=== PATIENT | male | born 1990 | race Caucasian/White ===

== ENCOUNTER 2019-11-25 11:07 | Emergency (ER) | payer BC, MEDICAID ==
[2019-11-25] MEDS ORDERED: Ondansetron 4 MG/2 ML SDV IVPUSH ONE (11:37)
[2019-11-25] MEDS ORDERED: Sodium Chloride 0.9% 10 ML Syringe FLUSH PRN (11:37)
[2019-11-25] MEDS ORDERED: Sodium Chloride 0.9% 1,000 ML IV ONE (11:37)
--- NOTE | 2019-11-25 11:37 | EDM.PDOC ---
ED HPI GENERAL MEDICAL PROBLEM - General Chief Complaint: Gastrointestinal Problem Stated Complaint: PASSED OUT AT WORK SICK X5 DAYS Time Seen by Provider: 11/25/19 11:22 Source of Information: Reports: Patient, RN Notes Reviewed, Significant Other History Limitations: Reports: No Limitations - History of Present Illness INITIAL COMMENTS - FREE TEXT/NARRATIVE: Patient is a 28-year-old male who presents to the ED for the evaluation of a few different complaints. Patient notes he has been ill for the past 5 days with vomiting and diarrhea, he states he is not able to keep much for food or fluids down at all. He states that he was able to eat some breakfast this morning, which consisted of eggs and some deer sausage. Patient notes that yesterday he felt a little bit better, so he went to work today and started exerting himself, loading and moving cases of pop, when he became lightheaded and felt sweaty, so he sat down. It was at this time he states he saw some flashing lights in his vision, and felt lightheaded/faint. He notes he did not have any sort of loss of consciousness nor did he blackout. Patient states that he has been having roughly 4-5 episodes of vomiting and diarrhea per day for the last few days. He has not noted any fever however he does not have a thermometer at home, he is afebrile at time of triage. He did notice some mild shortness of breath as well when he felt faint and lightheaded today. He does note his urine is darker in color, and seems to be more concentrated. He has not had any like sick contacts. He has not been taking any sort of over-the- counter medications for the vomiting or diarrhea, the significant other in the room states that he was taking sent tumeric and garlic at home. He denies any cough or chest pain, he does note some mild generalized abdominal tenderness. He has not had any abdominal surgeries, so he still retains his appendix and gallbladder. Patient notes he has not got a flu shot this year. He also denies any sort of questionable food he could have ingested. Patient does smoke cigarettes, 1 pack/day for 20 years, does not use alcohol, and states that he recently quit using methamphetamines 1 week ago. He states that he had been a user for around 10 years. He states that he injected meth when he used it. He does not have a primary care provider. Other Treatments [employer]: 7 up - Related Data Allergies Allergy/AdvReac Type Severity Reaction Status Date / Time No Known Allergies Allergy Verified 11/25/19 11:24 Home Meds: Home Meds Ondansetron [Zofran ODT] 4 mg PO Q8H PRN #12 tab.dis 11/25/19 [Rx] Past Medical History - Past Health History Medical/Surgical History: Denies Medical/Surgical History Social & Family History - Tobacco Use Smoking Status *Q: Current Every Day Smoker Years of Tobacco use: 20 Packs/Tins Daily: 1 - Caffeine Use Caffeine Use: Reports: Coffee, Soda, Tea - Recreational Drug Use Recreational Drug Use: Yes 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 Denies: Fever, Chills Respiratory: Reports: Shortness of Breath (when he felt faint this AM). Denies : Cough Cardiovascular: Reports: Lightheadedness, Palpitations (states he felt his heart racing when he felt faint this AM). Denies: Chest Pain, Edema GI/Abdominal: Reports: Abdominal Pain (generalized abd tenderness), Diarrhea, Decreased Appetite, Nausea, Vomiting. Denies: Black Stool, Bloody Stool, Hematemesis : Reports: Other (stronger smelling, darker colored urine). Denies: Dysuria, Frequency, Urgency Neurological: Reports: Syncope (near-syncope). Denies: Headache ED EXAM, GI/ABD - Physical Exam Exam: See Below Exam Limited By: No Limitations General Appearance: Alert, WD/WN, No Apparent Distress Eyes: Bilateral: Normal Appearance, EOMI Ears: Normal External Exam Nose: Normal Inspection Throat/Mouth: Normal Inspection, Normal Lips, Normal Teeth, Normal Gums, Normal Oropharynx, Normal Voice, No Airway Compromise Head: Atraumatic, Normocephalic Neck: Normal Inspection Respiratory/Chest: No Respiratory Distress, Lungs Clear, Normal Breath Sounds, No Accessory Muscle Use, Chest Non-Tender Cardiovascular: Normal Peripheral Pulses, Regular Rate, Rhythm, No Murmur GI/Abdominal Exam: Normal Bowel Sounds, Soft, No Distention, No Mass, Tender ( generalized tenderness throughout entire abdomen) Extremities: Normal Inspection, Normal Capillary Refill Neurological: Alert, Oriented, Normal Cognition, No Motor/Sensory Deficits Psychiatric: Normal Affect, Normal Mood Skin Exam: Warm, Dry, Intact, Normal Color, No Rash Course - Vital Signs Last Recorded V/S: Last Vital Signs Temp 96.9 F 11/25/19 11:27 Pulse 84 11/25/19 11:27 Resp 20 11/25/19 11:27 BP 118/90 11/25/19 11:27 Pulse Ox 100 11/25/19 11:27 Orthostatic Blood Pressure [ 115/84 Standing] Orthostatic Blood Pressure [ 114/88 Supine] - Orders/Labs/Meds Orders: Active Orders 24 hr Category Date Time Status Orthostatic Vital Signs [RC] ASDIRECTED Care 11/25/19 11:38 Active Peripheral IV Care [RC] . DIRECTED Care 11/25/19 11:37 Active HEP A AB, IGM [REF] Urgent Lab 11/25/19 14:30 Received HEPATITIS B SURFACE AG [CHEM] Stat Lab 11/25/19 14:30 Received HEPATITIS PANEL (4) [REF] Urgent Lab 11/25/19 14:30 Received Sodium Chloride 0.9% [Saline Flush] Med 11/25/19 11:37 Active 10 ml FLUSH ASDIRECTED PRN Peripheral IV Insertion Adult [OM.PC] Stat Oth 11/25/19 11:37 Ordered Medication Orders Sodium Chloride (Saline Flush) 10 ml FLUSH ASDIRECTED PRN PRN Reason: Keep Vein Open Last Admin: 11/25/19 11:51 Dose: 10 ml Labs: Laboratory Tests 11/25/19 11/25/19 11/25/19 Range/Units 11:52 11:52 11:52 WBC 11.34 H (4.23-9.07) K/mm3 RBC 5.79 (4.63-6.08) M/mm3 Hgb 17.1 (13.7-17.5) gm/dl Hct 50.5 (40.1-51.0) % MCV 87.2 (79.0-92.2) fl MCH 29.5 (25.7-32.2) pg MCHC 33.9 (32.2-35.5) g/dl RDW Std Deviation 53.1 H (35.1-43.9) fL Plt Count 287 (163-337) K/mm3 MPV 10.3 (9.4-12.3) fl Neut % (Auto) 59.7 (34.0-67.9) % Lymph % (Auto) 24.8 (21.8-53.1) % [place] % (Auto) 12.4 H (5.3-12.2) % Eos % (Auto) 2.6 (0.8-7.0) Baso % (Auto) 0.4 (0.1-1.2) % Neut # (Auto) 6.76 H (1.78-5.38) K/mm3 Lymph # (Auto) 2.81 (1.32-3.57) K/mm3 [place] # (Auto) 1.41 H (0.30-0.82) K/mm3 Eos # (Auto) 0.30 (0.04-0.54) K/mm3 Baso # (Auto) 0.05 (0.01-0.08) K/mm3 Manual Slide Review Normal smear Sodium 138 (136-145) mEq/L Potassium 4.2 (3.5-5.1) mEq/L Chloride 100 (98-107) mEq/L Carbon Dioxide 32 (21-32) mEq/L Anion Gap 10.2 (5-15) BUN 13 (7-18) mg/dL Creatinine 0.9 (0.7-1.3) mg/dL Est Cr Clr Drug Dosing 120.02 mL/min Estimated GFR (MDRD) > 60 (>60) mL/min BUN/Creatinine Ratio 14.4 (14-18) Glucose 94 (74-106) mg/dL Calcium 8.7 (8.5-10.1) mg/dL Total Bilirubin 6.2 H (0.2-1.0) mg/dL GGT 237 H (15-85) U/L AST 978 H (15-37) U/L ALT 3073 H (16-63) U/L Alkaline Phosphatase 286 H (46-116) U/L Total Protein 7.0 (6.4-8.2) g/dl Albumin 3.3 L (3.4-5.0) g/dl Globulin 3.7 gm/dL Albumin/Globulin Ratio 0.9 L (1-2) Lipase (73-393) U/L Urine Color (Yellow) Urine Appearance (Clear) Urine pH (5.0-8.0) Ur Specific [place] (1.005-1.030) Urine Protein (Negative) Urine Glucose (UA) (Negative) Urine Ketones (Negative) Urine Occult Blood (Negative) Urine Nitrite (Negative) Urine Bilirubin (Negative) Urine Urobilinogen (0.2-1.0) Ur Leukocyte Esterase (Negative) Urine RBC (0-5) /hpf Urine WBC (0-5) /hpf Ur Squamous Epith Cells (0-5) /hpf Urine Bacteria (FEW) /hpf Urine Mucus (FEW) /hpf Urine Opiates Screen (IVXUSA=619) Ur Buprenorphine Scrn (CUTOFF=10) Ur Oxycodone Screen (VKN4JJ=235) Urine Methadone Screen (BIN5KA=295) Ur Propoxyphene Screen (LQKDTD=608) Acetaminophen (10-30) ug/mL Ur Barbiturates Screen (NEROJX=158) Ur Tricyclics Screen (MLIZVN=429) Ur Phencyclidine Scrn (CUTOFF=25) Ur Amphetamine Screen (WWPIVC=766) U Methamphetamines Scrn (HHBVLG=936) U Benzodiazepines Scrn (ELBDQK=112) U Cocaine Metab Screen (DRVOQE=187) U Marijuana (THC) Screen (CUTOFF=50) Hepatitis C Antibody (NEGATIVE) HIV-1 Ab Rapid Screen (NEGATIVE) 11/25/19 11/25/19 11/25/19 Range/Units 11:52 11:52 11:52 WBC (4.23-9.07) K/mm3 RBC (4.63-6.08) M/mm3 Hgb (13.7-17.5) gm/dl Hct (40.1-51.0) % MCV (79.0-92.2) fl MCH (25.7-32.2) pg MCHC (32.2-35.5) g/dl RDW Std Deviation (35.1-43.9) fL Plt Count (163-337) K/mm3 MPV (9.4-12.3) fl Neut % (Auto) (34.0-67.9) % Lymph % (Auto) (21.8-53.1) % [place] % (Auto) (5.3-12.2) % Eos % (Auto) (0.8-7.0) Baso % (Auto) (0.1-1.2) % Neut # (Auto) (1.78-5.38) K/mm3 Lymph # (Auto) (1.32-3.57) K/mm3 [place] # (Auto) (0.30-0.82) K/mm3 Eos # (Auto) (0.04-0.54) K/mm3 Baso # (Auto) (0.01-0.08) K/mm3 Manual Slide Review Sodium (136-145) mEq/L Potassium (3.5-5.1) mEq/L Chloride (98-107) mEq/L Carbon Dioxide (21-32) mEq/L Anion Gap (5-15) BUN (7-18) mg/dL Creatinine (0.7-1.3) mg/dL Est Cr Clr Drug Dosing mL/min Estimated GFR (MDRD) (>60) mL/min BUN/Creatinine Ratio (14-18) Glucose (74-106) mg/dL Calcium (8.5-10.1) mg/dL Total Bilirubin (0.2-1.0) mg/dL GGT (15-85) U/L AST (15-37) U/L ALT (16-63) U/L Alkaline Phosphatase (46-116) U/L Total Protein (6.4-8.2) g/dl Albumin (3.4-5.0) g/dl Globulin gm/dL Albumin/Globulin Ratio (1-2) Lipase 99 (73-393) U/L Urine Color (Yellow) Urine Appearance (Clear) Urine pH (5.0-8.0) Ur Specific [place] (1.005-1.030) Urine Protein (Negative) Urine Glucose (UA) (Negative) Urine Ketones (Negative) Urine Occult Blood (Negative) Urine Nitrite (Negative) Urine Bilirubin (Negative) Urine Urobilinogen (0.2-1.0) Ur Leukocyte Esterase (Negative) Urine RBC (0-5) /hpf Urine WBC (0-5) /hpf Ur Squamous Epith Cells (0-5) /hpf Urine Bacteria (FEW) /hpf Urine Mucus (FEW) /hpf Urine Opiates Screen (KHHGXD=031) Ur Buprenorphine Scrn (CUTOFF=10) Ur Oxycodone Screen (QXD4CF=639) Urine Methadone Screen (BZN9UD=818) Ur Propoxyphene Screen (QWIXNE=393) Acetaminophen 0 L (10-30) ug/mL Ur Barbiturates Screen (MEIPDJ=173) Ur Tricyclics Screen (IGODSQ=542) Ur Phencyclidine Scrn (CUTOFF=25) Ur Amphetamine Screen (EFFYDB=941) U Methamphetamines Scrn (QWOWNV=002) U Benzodiazepines Scrn (DNIIKC=369) U Cocaine Metab Screen (ZFJJXN=695) U Marijuana (THC) Screen (CUTOFF=50) Hepatitis C Antibody Positive H (NEGATIVE) HIV-1 Ab Rapid Screen (NEGATIVE) 11/25/19 11/25/19 11/25/19 Range/Units 12:43 12:43 14:38 WBC (4.23-9.07) K/mm3 RBC (4.63-6.08) M/mm3 Hgb (13.7-17.5) gm/dl Hct (40.1-51.0) % MCV (79.0-92.2) fl MCH (25.7-32.2) pg MCHC (32.2-35.5) g/dl RDW Std Deviation (35.1-43.9) fL Plt Count (163-337) K/mm3 MPV (9.4-12.3) fl Neut % (Auto) (34.0-67.9) % Lymph % (Auto) (21.8-53.1) % [place] % (Auto) (5.3-12.2) % Eos % (Auto) (0.8-7.0) Baso % (Auto) (0.1-1.2) % Neut # (Auto) (1.78-5.38) K/mm3 Lymph # (Auto) (1.32-3.57) K/mm3 [place] # (Auto) (0.30-0.82) K/mm3 Eos # (Auto) (0.04-0.54) K/mm3 Baso # (Auto) (0.01-0.08) K/mm3 Manual Slide Review Sodium (136-145) mEq/L Potassium (3.5-5.1) mEq/L Chloride (98-107) mEq/L Carbon Dioxide (21-32) mEq/L Anion Gap (5-15) BUN (7-18) mg/dL Creatinine (0.7-1.3) mg/dL Est Cr Clr Drug Dosing mL/min Estimated GFR (MDRD) (>60) mL/min BUN/Creatinine Ratio (14-18) Glucose (74-106) mg/dL Calcium (8.5-10.1) mg/dL Total Bilirubin (0.2-1.0) mg/dL GGT (15-85) U/L AST (15-37) U/L ALT (16-63) U/L Alkaline Phosphatase (46-116) U/L Total Protein (6.4-8.2) g/dl Albumin (3.4-5.0) g/dl Globulin gm/dL Albumin/Globulin Ratio (1-2) Lipase (73-393) U/L Urine Color Cindy H (Yellow) Urine Appearance Clear (Clear) Urine pH 6.0 (5.0-8.0) Ur Specific [place] 1.025 (1.005-1.030) Urine Protein Trace H (Negative) Urine Glucose (UA) Trace H (Negative) Urine Ketones Negative (Negative) Urine Occult Blood Negative (Negative) Urine Nitrite Negative (Negative) Urine Bilirubin 3+ H (Negative) Urine Urobilinogen >=8.0 H (0.2-1.0) Ur Leukocyte Esterase Negative (Negative) Urine RBC 5-10 H (0-5) /hpf Urine WBC 0-5 (0-5) /hpf Ur Squamous Epith Cells 0-5 (0-5) /hpf Urine Bacteria Few (FEW) /hpf Urine Mucus Many H (FEW) /hpf Urine Opiates Screen Negative (XRHJXG=495) Ur Buprenorphine Scrn Negative (CUTOFF=10) Ur Oxycodone Screen Negative (LVY5XT=551) Urine Methadone Screen Negative (ERM8VR=799) Ur Propoxyphene Screen Negative (VGUCCC=457) Acetaminophen (10-30) ug/mL Ur Barbiturates Screen Negative (LYYNHI=117) Ur Tricyclics Screen Negative (PZFGOW=213) Ur Phencyclidine Scrn Negative (CUTOFF=25) Ur Amphetamine Screen Presumptive positive H (LLARLZ=153) U Methamphetamines Scrn Presumptive positive H (EYACUR=137) U Benzodiazepines Scrn Negative (IIQKVO=143) U Cocaine Metab Screen Negative (YUYKBQ=774) U Marijuana (THC) Screen Negative (CUTOFF=50) Hepatitis C Antibody (NEGATIVE) HIV-1 Ab Rapid Screen Negative (NEGATIVE) Meds: Medications Generic Name Dose Route Start Last Admin Trade Name Irma PRN Reason Stop Dose Admin Sodium Chloride 10 ml 11/25/19 11:37 11/25/19 11:51 Saline Flush FLUSH 10 ml ASDIRECTED PRN Administration Keep Vein Open Discontinued Medications Generic Name Dose Route Start Last Admin Trade Name Irma PRN Reason Stop Dose Admin Sodium Chloride 1,000 mls @ 999 mls/hr 11/25/19 11:37 11/25/19 11:51 Normal Saline IV 11/25/19 12:37 999 mls/hr ONETIME ONE Administration Ondansetron HCl 4 mg 11/25/19 11:37 11/25/19 11:51 Zofran IVPUSH 11/25/19 11:38 4 mg ONETIME ONE Administration - Re-Assessments/Exams Free Text/Narrative Re-Assessment/Exam: 11/25/19 11:42 Patient presents to the ED for the evaluation of a near syncopal event at work. I do believe he is suffering from dehydration due to multiple episodes of vomiting and diarrhea he has had for the past few days. And he simply overexerted himself, which made him feel faint. Plan is to get orthostatic vital signs, obtain some labs to include CBC, CMP, urinalysis, give him some IV fluids and 4 mg Zofran for nausea relief. 11/25/19 13:49 Patient's laboratory evaluation is back, and is impressive for markedly elevated transaminases, bilirubin is also elevated at 6.2, AST at 978, ALT at 3073, ALP 286. Due to the patient's history of methamphetamine use, for which he injects, hepatitis studies will be obtained, I will also check an acetaminophen level, lipase, GGT, urine drug screen, and a right upper quadrant abdominal ultrasound for further evaluation. This case was discussed with Dr. Platt, he does not have any other recommendations for evaluation at this time. I did make the patient aware of this, he states he was kind of worried about that due to his injected meth use. He is okay with this plan at this time. He will need to establish care with a primary care provider. Of note the patient states he was feeling better after the IV fluids and Zofran. 11/25/19 14:04 GGT is also elevated at 237, lipase is within normal limits. 11/25/19 14:58 Patient's ultrasound demonstrates no focal abnormalities, no gallstones are seen no definite gallbladder wall thickening. Liver appears to be within normal limits on the ultrasound as well. Further labs have started to result, hep B is still pending, hepatitis panel and hep A panel are send outs, so we will not have results of those today. However patient's hep C test is positive , and this would likely explain the elevated liver enzymes. I consult a specialist regarding results once the hep B is resulted. 11/25/19 15:49 Did call infectious disease, did speak with Dr. Iglesias at [facility] in [place]. I did go over the lab results with him, and he states that as this is more of an acute infection type presentation, that there is no need for antivirals at this moment. He notes that treatment is mainly supportive, to help calm down the inflammation in the liver, he states that steroids could be a choice of therapy at this time. Of note patient's hep B and HIV tests are still pending. However I did discuss the possibility if these are positive with Dr. Iglesias, and he states that still it would not exchange operator and it would just be supportive therapy. 11/25/19 16:01 HIV is resulted, and is negative. Departure - Departure Time of Disposition: 15:51 Disposition: Home, Self-Care 01 Condition: Fair Clinical Impression: Gastroenteritis, Hepatitis C antibody positive in blood - Discharge Information *PRESCRIPTION DRUG MONITORING PROGRAM REVIEWED*: No *COPY OF PRESCRIPTION DRUG MONITORING REPORT IN PATIENT [place]: No Prescriptions: Ondansetron [Zofran ODT] 4 mg PO Q8H PRN #12 tab.dis PRN Reason: Nausea Referrals: PCP,None [Primary Care Provider] - Forms: ED Department Discharge, ED Return to Work/School Form Additional Instructions: You have been evaluated in the ED for nausea/vomiting/diarrhea. It is likely that this is caused from a viral gastroenteritis. You have received IV fluid in the ED to help with the dehydration from the vomiting and diarrhea. Over the next 24-48 hours please try to limit diet to clear liquids and advance as tolerate to a bland diet to alleviate symptoms of nausea/vomiting/diarrhea. Please use the Zofran every 8 hours as needed for nausea. Your laboratory evaluation today demonstrated that you have come into contact with hepatitis C at some point, as you have antibodies present in your blood. There are a few tests we did today, that are send outs, we should likely have results for these next week. However I strongly recommend that you establish care with a primary care provider. Our records reflect that you have seen Giovanna Eduardo in the past, recommend that you try to obtain an appointment with her, for sometime mid to later next week. Our [facility] clinic number [phone]. Please call this tomorrow to get an appointment. Your case was discussed with an infectious disease specialist, he noted that this sounds as if it is an acute viral reaction, and he states that the treatment of this is mainly supportive therapy, medications to help the inflammation around the liver. This would include ibuprofen, You may take 600 mg ibuprofen every 6 hours as needed for further pain relief. He notes that the need for antiviral therapy would, little further down the road, if it was established that you had a chronic hepatitis C infection. This will need to be evaluated by repeat lab testing, hence the need for a primary care provider to help facilitate this. Your ultrasound demonstrated no focal structural abnormalities of your gallbladder or liver at this time. Please return to the ED if your symptoms should change or worsen. Sepsis Event Note - Evaluation Sepsis Screening Result: No Definite Risk - Focused Exam Vital Signs: Vital Signs Temp Pulse Resp BP Pulse Ox 11/25/19 11:27 96.9 F 84 20 118/90 100 Date Exam was Performed: 11/25/19 Time Exam was Performed: 16:10 - My Orders Last 24 Hours: My Active Orders 11/25/19 11:37 Peripheral IV Care [RC] . DIRECTED Sodium Chloride 0.9% [Saline Flush] 10 ml FLUSH ASDIRECTED PRN Peripheral IV Insertion Adult [OM.PC] Stat 11/25/19 11:38 Orthostatic Vital Signs [RC] ASDIRECTED 11/25/19 14:30 HEP A AB, IGM [REF] Urgent HEPATITIS B SURFACE AG [CHEM] Stat HEPATITIS PANEL (4) [REF] Urgent - Assessment/Plan Last 24 Hours: My Active Orders 11/25/19 11:37 Peripheral IV Care [RC] . DIRECTED Sodium Chloride 0.9% [Saline Flush] 10 ml FLUSH ASDIRECTED PRN Peripheral IV Insertion Adult [OM.PC] Stat 11/25/19 11:38 Orthostatic Vital Signs [RC] ASDIRECTED 11/25/19 14:30 HEP A AB, IGM [REF] Urgent HEPATITIS B SURFACE AG [CHEM] Stat HEPATITIS PANEL (4) [REF] Urgent
--- NOTE | 2019-11-25 14:48 | US ---
Limited abdominal ultrasound: Multiple real-time images of the upper right abdomen were obtained. Comparison: No previous abdominal imaging. Technologist's note: Suboptimal exam due to bowel gas in nondistended gallbladder. Liver shows no focal abnormality. Gallbladder is poorly distended. No obvious findings of shadowing gallstones are seen. Note definite gallbladder wall thickening or biliary duct dilatation is seen. Pancreas is mostly obscured from bowel gas. Inferior vena cava is patent. Main portal vein shows normal hepatopedal flow. Right kidney shows no hydronephrosis or mass. Right kidney measures 11.2 cm. Impression: 1. Contracted gallbladder. 2. Poorly seen pancreas. 3. No additional abnormality is appreciated on right upper quadrant abdominal ultrasound. Diagnostic code #2 This report was dictated in [place] Standard Time
== END 2019-11-25 16:18 | disposition home or self-care (01) ==
LOC: JD.ED 11:07
DX: K52.9 Noninfective gastroenteritis and colitis, unspecified (principal); B19.20 Unspecified viral hepatitis C without hepatic coma; F17.210 Nicotine dependence, cigarettes, uncomplicated
CPT/HCPCS: 36415; 76705; 80053; 80074; 80306; 80329; 81001; 82977; 83690; 85025; 86709; 86803; 87340; 87449; 96361; 96374; 99284; J2405; J7030; G0433; G0480

== ENCOUNTER 2020-04-08 03:32 | Emergency (ER) | payer OTHER ==
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
[2020-04-08] MEDS ORDERED: ceFAZolin 2 GM in Premix Bag 1 BAG IV STA (03:56)
[2020-04-08] MEDS ORDERED: Diphtheria,Pertussis(Acell),Tetanus Vaccine 0.5 ML Syringe IM ONE (03:57)
[2020-04-08] MEDS ORDERED: Lidocaine 1% 30 ML SDV ONE (04:00)
[2020-04-08] MEDS ORDERED: Lactated Ringers 1,000 ML IV SCH (04:00)
[2020-04-08] MEDS ORDERED: Morphine 2 MG/ML Syringe ONE (04:02)
[2020-04-08] MEDS ORDERED: Morphine 2 MG/ML Syringe IVPUSH ONE (04:04)
[2020-04-08] MEDS ORDERED: Lidocaine 1% 50 ML MDV INJECT STA (05:05)
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
== END 2020-04-08 05:43 | disposition home or self-care (01) ==
LOC: JD.ED 03:32
DX: S81.811A Laceration without foreign body, right lower leg, initial encounter (principal); S01.01XA Laceration without foreign body of scalp, initial encounter; F15.10 Other stimulant abuse, uncomplicated; F17.210 Nicotine dependence, cigarettes, uncomplicated; Z23 Encounter for immunization; Y04.2XXA Assault by strike against or bumped into by another person, initial encounter; Z20.828 Contact with and (suspected) exposure to other viral communicable diseases
CPT/HCPCS: 12002; 36415; 80053; 80307; 85025; 85610; 85730; 87635; 90471; 90715; 93005; 96365; 96375; 99284; J0690; J2001; J2270; J7120; 12001; U0002

== ENCOUNTER 2023-11-08 23:18 | Emergency (ER) | payer MEDICAID, OTHER ==
[2023-11-08] MEDS ORDERED: Acetaminophen/oxyCODONE 325-5 MG Tab PO ONE (23:59)
[2023-11-08] MEDS ORDERED: Lidocaine 2% 11 ML Jelly Filled Syringe MUCMEM PRN (23:59)
[2023-11-09] MEDS ORDERED: Witch Hazel Medicated Pads 40/Jar TOP PRN (00:07)
== END 2023-11-09 00:30 | disposition home or self-care (01) ==
LOC: JD.ED 23:18
DX: K64.5 Perianal venous thrombosis (principal); F17.210 Nicotine dependence, cigarettes, uncomplicated; Z86.16 Personal history of COVID-19
CPT/HCPCS: 99282; A9270

== ENCOUNTER 2024-03-14 17:25 | Emergency (ER) | payer BC, MEDICAID | END 2024-03-14 19:07 | disposition home or self-care (01) | LOC: JD.ED 17:25 | DX: S83.92XA Sprain of unspecified site of left knee, initial encounter (principal); F17.210 Nicotine dependence, cigarettes, uncomplicated; Z86.16 Personal history of COVID-19; X50.1XXA Overexertion from prolonged static or awkward postures, initial encounter; Y93.64 Activity, baseball | CPT/HCPCS: 73564-26-LT; 73564-LT; 99283 ==

== ENCOUNTER → 2024-04-14 | Day surgery (SDC) | payer BC ==
[~2024-04-14] MED LIST: Dexamethasone 4 MG/ML 5 ML MDV ONE; HYDROmorphone 0.5 MG/0.5 ML Syringe IVPUSH PRN; Lactated Ringers 1,000 ML IV ONE; Midazolam 1 MG/ML 2 ML SDV ONE; Ondansetron 4 MG/2 ML SDV IVPUSH PRN; Ondansetron 4 MG/2 ML SDV ONE; Propofol 200 MG/20 ML SDV ONE; Rocuronium 50 MG/5 ML Vial ONE; Ropivacaine 0.5% 5 MG/ML 30 ML SDV ONE; Sodium Chloride 0.9% 10 ML Syringe FLUSH PRN; Sodium Chloride 0.9% 10 ML Syringe FLUSH SCH; ceFAZolin 2 GM Vial ONE; fentaNYL 100 MCG/2 ML SDV IVPUSH PRN; fentaNYL 250 MCG/5 ML SDV ONE
[2024-04-14] MEDS: Lactated Ringers 1,000 ML IV SCH (08:15)
[2024-04-14] MEDS: EPINEPHrine 1 MG/ML SDV ONE (11:56)
[2024-04-14] MEDS: Acetaminophen/HYDROcodone 325-5 MG Tab PO PRN (14:32)
== END | disposition home or self-care (01) ==
LOC: JD.SDS 07:57
PROVIDERS: ATTEND Orthopaedic Surgery
DX: S83.512A Sprain of anterior cruciate ligament of left knee, initial encounter (principal); S83.242A Other tear of medial meniscus, current injury, left knee, initial encounter; F41.8 Other specified anxiety disorders; F17.210 Nicotine dependence, cigarettes, uncomplicated; Z79.82 Long term (current) use of aspirin; Z79.899 Other long term (current) drug therapy
CPT/HCPCS: 29881; 29888; 76000; A9270; C1713; C1762; J0171; J0690; J1100; J2250; J2405; J2704; J2795; J3010; J7120; 01400; J3490

== ENCOUNTER 2025-09-17 20:13 | Emergency (ER) | payer BC ==
[2025-09-17] MEDS ORDERED: Sodium Chloride 0.9% 10 ML Syringe FLUSH PRN (20:59)
[2025-09-17 21:15] LABS: BASOPHILS ABSOLUTE AUTO 0.1 K/mm3 (0.0-0.2); BASOPHILS PERCENT AUTO 0.6 % (0.0-1.0); EOSINOPHILS ABSOLUTE AUTO 0.2 K/mm3 (0.0-0.4); EOSINOPHILS PERCENT AUTO 1.8 % (0.0-6.0); IMMATURE GRAN ABSOLUTE AUTO 0.03 K/mm3 (0.00-0.05); IMMATURE GRAN PERCENT AUTO 0.3 % (0.0-0.4); LYMPHOCYTES ABSOLUTE AUTO 3.6 K/mm3 (1.0-4.8); LYMPHOCYTES PERCENT AUTO 33.4 % (24.0-44.0); MEAN PLATELET VOLUME 10.3 fl (9.4-12.4); MONOCYTES ABSOLUTE AUTO 0.9 K/mm3 (0.0-0.8); MONOCYTES PERCENT AUTO 8.6 % (0.0-8.0); NEUTROPHILS ABSOLUTE AUTO 5.9 K/mm3 (1.8-7.7); NEUTROPHILS PERCENT AUTO 55.3 % (41.0-71.0); NRBC ABSOLUTE 0.00 (0.00-0.02); NRBC PERCENT 0.0 % (0.0-0.2); PLATELET COUNT,PLT 240 K/mm3 (150-400); RED BLOOD CELL COUNT 5.34 M/mm3 (4.52-5.90); WHITE BLOOD CELL COUNT,WBC 10.63 K/mm3 (3.9-11.3)
[2025-09-17 21:16] LABS: APPEARANCE,URINE CLEAR (Clear); GLUCOSE,URINE NEGATIVE (Negative); OCCULT BLOOD,URINE NEGATIVE (Negative)
[2025-09-17] MEDS: Sodium Chloride 0.9% 10 ML Syringe FLUSH PRN (21:16)
[2025-09-17] MEDS: Iopamidol 612 MG/ML 100 ML Bottle IVPUSH ONE (21:16)
[2025-09-17 21:34] LABS: A/G RATIO 1.1 (1-2); ALANINE AMINOTRANSFERASE,ALT 32.0 U/L (16-63); BILIRUBIN TOTAL 0.4 mg/dL (0.2-1.0); BLOOD UREA NITROGEN,BUN 17.0 mg/dL (7-18); CARBON DIOXIDE,CO2 31.0 mEq/L (21-32); CHLORIDE,CL 105.0 mEq/L (98-107); CREATININE 1.3 mg/dL (0.7-1.3); EST CRCL DRUG DOSING (CG) 78.56 mL/min; ESTIMATED GFR 73.0 mL/min (>60); GLUCOSE RANDOM 101.0 mg/dL (70-99); PROTEIN TOTAL,TP 7.4 g/dl (6.4-8.2); SODIUM,NA 143.0 mEq/L (136-145)
[2025-09-17 21:38] LABS: POTASSIUM,K 4.1 mEq/L (3.5-5.1)
[2025-09-17 21:39] LABS: ASPARTATE AMNIOTRANSFERASE,AST 24.0 U/L (15-37)
== END 2025-09-17 23:20 | disposition home or self-care (01) ==
LOC: JD.ED 20:13
DX: M25.551 Pain in right hip (principal); Z86.16 Personal history of COVID-19
CPT/HCPCS: 36415; 73502; 74177; 80053; 81003; 85025; 86140; 99284; A9270; Q9967